=== PATIENT | male | born 1985 | race Caucasian/White ===

== ENCOUNTER 2020-08-10 01:00 | Emergency (ER) | payer SELFPAY ==
[~2020-08-10] VITALS: Ht 172.7 cm; Wt 6.8 kg
[2020-08-10 01:05] VITALS: BP 152/97
[2020-08-10] MEDS ORDERED: haloperidol lactate 5mg/ml inj IM ONE (01:15)
[2020-08-10] MEDS ORDERED: TETanus/Pertussis (Acell)/Diphther VAC/PF (Tdap-Adult) 0.5ml syringe IMVAC ONE (01:15)
[2020-08-10] MEDS ORDERED: diphenhydrAMINE 50 mg/ml inj IM ONE (01:15)
[2020-08-10] MEDS ORDERED: AMOX-117 PO (01:39)
== END 2020-08-10 01:53 ==
LOC: ER 01:01 → EDBD 01:01 → ER 01:53
DX: S51.811A Laceration without foreign body of right forearm, initial encounter (principal); R41.82 Altered mental status, unspecified; Z79.899 Other long term (current) drug therapy; W54.0XXA Bitten by dog, initial encounter; Y93.89 Activity, other specified; Y92.89 Other specified places as the place of occurrence of the external cause; Y99.8 Other external cause status
CPT/HCPCS: 12002; 90471; 90715; 96372; 99284; J1200; J1630

== ENCOUNTER 2021-01-21 00:04 | Emergency (ER) | payer MEDICAID ==
[~2021-01-21] VITALS: Ht 175.3 cm; Wt 72.7 kg
[2021-01-21 01:01] LABS: BASOPHILS % (AUTO) 0.3 % (0-1); EOSINOPHILS # (AUTO) 0.1 X10'3 (0-0.9); EOSINOPHILS % (AUTO) 1.2 % (0-6); HEMATOCRIT 38.5 % (42.0-52.0); HEMOGLOBIN 13.6 g/dl (14.0-17.9); MEAN CORPUSCULAR HEMOGLOBIN 31.8 PG (27.0-31.0); MEAN CORPUSCULAR HGB CONC 35.3 g/dL (33.0-36.5); MEAN PLATELET VOLUME 7.9 FL (7.4-10.4); MONOCYTES # (AUTO) 1.7 X10'3 (0-0.9); MONOCYTES % (AUTO) 17.1 % (2-12); NEUTROPHILS # (AUTO) 5.8 X10'3 (1.8-7.7); NEUTROPHILS % (AUTO) 60.4 % (42-75); PLATELET COUNT 283 X10'3 (140-440); RED BLOOD COUNT 4.27 X10'6 (4.70-6.10); RED CELL DISTRIBUTION WIDTH 13.1 % (11.5-14.5); WHITE BLOOD COUNT 9.6 X10'3 (4.5-11.0)
[2021-01-21 01:29] LABS: ALANINE AMINOTRANSFERASE 54 U/L (12-78); ALBUMIN 3.5 G/DL (3.4-5.0); ALBUMIN/GLOBULIN RATIO 0.9 (1.1-1.5); ALKALINE PHOSPHATASE 71 IU/L (46-116); ANION GAP 10 (8-16); ASPARTATE AMINO TRANSFERASE 52 U/L (10-37); BILIRUBIN,TOTAL 0.6 MG/DL (0.1-1.0); BLOOD UREA NITROGEN 12 MG/DL (7-18); BUN/CREATININE RATIO 12.5 (5.4-32.0); CALCIUM 9.1 MG/DL (8.5-10.1); CHLORIDE 101 MMOL/L (99-107); CREATININE 0.96 MG/DL (0.60-1.10); GLUCOSE 109 MG/DL (70-104); POTASSIUM 3.8 MMOL/L (3.5-5.1); SODIUM 137 MMOL/L (135-145); TOTAL PROTEIN 7.2 G/DL (6.4-8.2); eGFR 90 ML/MIN
[2021-01-21] MEDS ORDERED: CefTRIAXone 2gm/D5W 50ml BAG 50 ML IV ONE (03:55)
[2021-01-21 04:48] LABS: PLATELET ESTIMATE NORMAL; TOTAL CELLS COUNTED 100
[2021-01-21 05:00] VITALS: BP 145/112
--- NOTE | 2021-01-21 05:00 | NUR ---
PT REFUSED IV ABX, HE DECLINES RN PUTTING A NEW IV IN FOR ABX, ATTEMPTED TO EDUCATED PT MULTIPLE TIMES ABOUT NEED TO TREAT HIS FOOT, PT REFUSED AND REQUESTS TO LEAVE. AWARE. SEE AMA PAPERWORK. CHARGE AWARE.
[2021-01-21] MEDS ORDERED: CEPH-585 PO (05:23)
== END 2021-01-21 05:37 | disposition left against medical advice (07) ==
LOC: ER 00:05
DX: S92.421A Displaced fracture of distal phalanx of right great toe, initial encounter for closed fracture (principal); S97.81XA Crushing injury of right foot, initial encounter; S90.414A Abrasion, right lesser toe(s), initial encounter; L03.115 Cellulitis of right lower limb; M79.671 Pain in right foot; Z79.2 Long term (current) use of antibiotics; X58.XXXA Exposure to other specified factors, initial encounter; Y93.89 Activity, other specified; Y92.89 Other specified places as the place of occurrence of the external cause; Y99.8 Other external cause status
CPT/HCPCS: 36415; 71045; 73590; 73610; 73630; 80053; 83605; 84145; 85007; 85025; 96365; 99284; J0696